=== PATIENT | male | born 1955 | race Caucasian/White ===

== ENCOUNTER → 2020-04-01 11:47 | Outpatient (CLI) | payer BC, SELFPAY | PROVIDERS: PCP Internal Medicine Adolescent Medicine; Visit Provider Internal Medicine Adolescent Medicine | DX: Z03.818 Encounter for observation for suspected exposure to other biological agents ruled out (principal); R50.9 Fever, unspecified | CPT/HCPCS: U0003 ==

== ENCOUNTER → 2020-08-28 09:42 | Outpatient (CLI) | payer BC, SELFPAY ==
[2020-08-28 10:25] LABS: Basophils # 0.1 K/mm3 (0-0.2); Basophils % 1.3 % (0.1-2.0); Eosinophils # 0.1 K/mm3 (0.0-0.4); Eosinophils % 2.7 % (0.1-12.0); Hematocrit 45.2 % (42.0-52.0); Hemoglobin 14.6 g/dL (14.1-18.0); Lymphocytes # 1.5 K/mm3 (0.7-4.5); Mean Corpuscular HGB Conc 32.3 g/dL (31.8-35.4); Mean Corpuscular Hemoglobin 29.9 pg (27.0-31.2); Mean Corpuscular Volume 92.8 fl (80-94); Mean Platelet Volume 7.7 fl (7.4-10.4); Monocytes # 0.4 K/mm3 (0.1-1.0); Monocytes % 8.1 % (1.7-9.3); Neutrophils # 2.9 K/mm3 (1.8-7.8); Neutrophils % 57.9 % (37.0-80.0); Platelet Count 232 K/mm3 (142-424); Red Blood Count 4.88 M/mm3 (4.60-6.20); Red Cell Distribution Width 13.7 % (11.5-17.5)
[2020-08-28 10:58] LABS: Alanine Aminotransferase 43 U/L (12-78); Albumin Level 4.4 g/dl (3.5-5.0); Albumin/Globulin Ratio 1.8 (1.1-1.8); Alkaline Phosphatase 61 U/L (38-126); Anion Gap 10.5 mEq/L (5-15); Aspartate Amino Transferase 39 U/L (17-59); Bilirubin,Total 1.1 mg/dl (0.2-1.3); Blood Urea Nitrogen 21 mg/dl (9-20); Calcium 10.1 mg/dl (8.4-10.2); Carbon Dioxide 31 mmol/L (22.0-30.0); Chloride 101 mmol/L (98-107); Chol/HDL Ratio 4.8 (1-3.5); Cholesterol 189 mg/dl (140-200); Estimated Glomerular Filt Rate 61 ml/min (>60); GFR (African American) 74 ML/MIN (>60); Globulin 2.5 g/dL (1.3-3.2); Glucose 121 mg/dl (74-100); HDL Cholesterol 39 mg/dl (40-60); Potassium 4.5 mmoL/L (3.5-5.1); Sodium 138 mmol/L (136-145); Total Protein,Serum 6.9 g/dl (6.3-8.2); Triglycerides 145 mg/dl (30-150); VLDL Cholesterol 29 mg/dL (0-40)
[2020-08-28 11:09] LABS: Direct LDL Cholesterol 100.12 mg/dL (100-129)
== END ==
PROVIDERS: Visit Provider Internal Medicine Adolescent Medicine
DX: Z00.00 Encounter for general adult medical examination without abnormal findings (principal); Z12.5 Encounter for screening for malignant neoplasm of prostate; E78.5 Hyperlipidemia, unspecified
CPT/HCPCS: 36415; 80053; 80061; 85025; G0103

== ENCOUNTER → 2021-09-15 08:20 | Outpatient (CLI) | payer BC, SELFPAY ==
[2021-09-15 08:44] LABS: Basophils # 0.1 K/mm3 (0-0.2); Basophils % 1.8 % (0.1-2.0); Eosinophils # 0.1 K/mm3 (0.0-0.4); Eosinophils % 2.6 % (0.1-12.0); Hematocrit 45.1 % (42.0-52.0); Hemoglobin 14.8 g/dL (14.1-18.0); Lymphocytes # 1.8 K/mm3 (0.7-4.5); Lymphocytes % 34.5 % (10-50); Mean Corpuscular HGB Conc 32.7 g/dL (31.8-35.4); Mean Corpuscular Hemoglobin 31.4 pg (27.0-31.2); Mean Corpuscular Volume 96.1 fl (80-94); Monocytes # 0.4 K/mm3 (0.1-1.0); Monocytes % 8.6 % (1.7-9.3); Neutrophils # 2.7 K/mm3 (1.8-7.8); Neutrophils % 52.5 % (37.0-80.0); Platelet Count 252 K/mm3 (142-424); Red Cell Distribution Width 13.9 % (11.5-17.5); White Blood Count 5.1 K/mm3 (4.8-10.8)
[2021-09-15 10:30] LABS: Alanine Aminotransferase 39 U/L (12-78); Albumin Level 4.4 g/dl (3.5-5.0); Albumin/Globulin Ratio 2.1 (1.1-1.8); Alkaline Phosphatase 51 U/L (38-126); Anion Gap 12.5 mEq/L (5-15); Aspartate Amino Transferase 40 U/L (17-59); Bilirubin,Total 0.6 mg/dl (0.2-1.3); Blood Urea Nitrogen 22 mg/dl (9-20); Calcium 9.9 mg/dl (8.4-10.2); Carbon Dioxide 28 mmol/L (22.0-30.0); Chloride 103 mmol/L (98-107); Chol/HDL Ratio 4.2 (1-3.5); Cholesterol 143 mg/dl (140-200); Estimated Glomerular Filt Rate 68 ml/min (>60); GFR (African American) 82 ML/MIN (>60); Globulin 2.1 g/dL (1.3-3.2); Glucose 116 mg/dl (74-100); HDL Cholesterol 34 mg/dl (40-60); Potassium 4.5 mmoL/L (3.5-5.1); Sodium 139 mmol/L (136-145); Total Protein,Serum 6.5 g/dl (6.3-8.2); Triglycerides 109 mg/dl (30-150); VLDL Cholesterol 22 mg/dL (0-40)
[2021-09-15 10:40] LABS: Direct LDL Cholesterol 82.04 mg/dL (100-129)
== END ==
PROVIDERS: PCP Internal Medicine Adolescent Medicine; Visit Provider Internal Medicine Adolescent Medicine
DX: I10 Essential (primary) hypertension (principal); E78.5 Hyperlipidemia, unspecified
CPT/HCPCS: 36415; 80053; 80061; 85025

== ENCOUNTER 2023-08-26 09:53 | Outpatient (CLI) | payer BC, SELFPAY ==
[2023-08-26 11:08] LABS: Chloride 99 mmol/L (98-107); Sodium 137 mmol/L (136-145)
[2023-08-26 11:09] LABS: Potassium 4.1 mmoL/L (3.5-5.1)
[2023-08-26 11:11] LABS: Alanine Aminotransferase 35 U/L (12-78); Albumin Level 4.2 g/dl (3.5-5.0); Alkaline Phosphatase 104 U/L (38-126); Anion Gap 11.1 mEq/L (5-15); Aspartate Amino Transferase 35 U/L (17-59); Bilirubin,Total 0.7 mg/dl (0.2-1.3); Blood Urea Nitrogen 22 mg/dl (9-20); Calcium 9.1 mg/dl (8.4-10.2); Carbon Dioxide 31 mmol/L (22.0-30.0); Chol/HDL Ratio 4.5 (1-3.5); Cholesterol 127 mg/dl (140-200); Estimated Glomerular Filt Rate 67 ml/min (>60); GFR (African American) 81 ML/MIN (>60); Globulin 2.1 g/dL (1.3-3.2); Glucose 111 mg/dl (74-100); HDL Cholesterol 28 mg/dl (40-60); Total Protein,Serum 6.3 g/dl (6.3-8.2); Triglycerides 171 mg/dl (30-150); VLDL Cholesterol 34 mg/dL (0-40)
[2023-08-26 11:22] LABS: Direct LDL Cholesterol 67.53 mg/dL (100-129)
== END 2023-08-26 23:59 ==
LOC: LAB 09:55
PROVIDERS: PCP Internal Medicine Adolescent Medicine; Visit Provider Internal Medicine Adolescent Medicine
DX: E78.49 Other hyperlipidemia (principal)
CPT/HCPCS: 36415; 80053; 80061

== ENCOUNTER 2023-09-29 16:00 | Outpatient (RCR) | payer BC, SELFPAY | END 2023-09-29 17:00 | disposition home or self-care (01) | LOC: PT 16:00 | PROVIDERS: PCP Internal Medicine Adolescent Medicine; Visit Provider Physician Assistant | DX: M25.561 Pain in right knee (principal); Z96.651 Presence of right artificial knee joint | CPT/HCPCS: 97010; 97014; 97016; 97110; 97140; 97163; 97164; 97530; G0283 ==

== ENCOUNTER 2024-09-12 08:35 | Outpatient (CLI) | payer MEDICARE, BC, SELFPAY ==
[2024-09-12 08:40] LABS: Adenovirus F 40/41, stool Not Detected (NotDetected); Astrovirus Not Detected (NotDetected); Campylobacter Not Detected (NotDetected); Clostridium Difficile A/B, PCR Not Detected (NotDetected); Cryptosporidium Not Detected (NotDetected); Cyclospora Cayetanesis Not Detected (NotDetected); Entamoeba histolytica Not Detected (NotDetected); Enteroaggregative E coli Not Detected (NotDetected); Enteropathogenic E coli Not Detected (NotDetected); Enterotoxigenic E coli Not Detected (NotDetected); Giardia lamblia Not Detected (NotDetected); Norovirus Not Detected (NotDetected); Plesimonas Shigalloides, PCR Not Detected (NotDetected); Rotavirus A Not Detected (NotDetected); Salmonella, PCR Not Detected (NotDetected); Sapovirus Not Detected (NotDetected); Shiga-like toxin E coli Not Detected (NotDetected); Shigella Enterovasive E coli Not Detected (NotDetected); Vibrio Cholerae Not Detected (NotDetected); Vibrio, PCR Not Detected (NotDetected); Yersinia Entercolitica, PCR Not Detected (NotDetected)
== END 2024-09-12 23:59 | disposition home or self-care (01) ==
LOC: LAB 08:36
PROVIDERS: PCP Internal Medicine Adolescent Medicine; Visit Provider Nurse Practitioner Family
DX: R19.7 Diarrhea, unspecified (principal)
CPT/HCPCS: 87506

== ENCOUNTER 2024-11-22 06:23 | Day surgery (SDC) | payer MEDICARE, BC, SELFPAY ==
[2024-11-19 16:36] VITALS: BMI 30.5
[2024-11-22] VITALS (7 sets, daily range): BP systolic 124–153; BP diastolic 80–95; PULSE 51–54; RESP 16–18; TEMP 36.3–36.4; O2SAT 94–100
[2024-11-22] MEDS: LACTATED RINGERS 1000ML 1,000 ML 50 ML IV (07:27)
--- NOTE | 2024-11-22 07:27 | P.PNANES_ITS ---
[facility] Disclaimer: The information contained in this section may have been updated after the patient was seen, as this information can be updated by other users. Medical History Asthma Allergies Hypertension Colonoscopy planned Surgical History Knee joint replacement status Family History Other Cancer Social History Smoking Status: Never smoker alcohol intake: never substance use type: denies use current occupational status: retired Travel in the last 8 weeks: None caffeine: Yes [facility] Anesthesia Checklist Patient Identification Patient Identification: Arm Band and Verbal (Name & ) Structural Data Admitted From: Home Planned Operative Procedure/s: colonscopy Consent for Planned Operative Procedure(s) Verified: Yes Verified Documents: Surgical Consent and History and Physical NPO Status Verified Time NPO: 00:00 Additional verifications Anesthesia Reactions: No Airway Assessment Mallampati Score:: Class I Neurological Assessment Level of Consciousness: Awake, Alert and Appropriate Anesthesia Plan Anesthesia Risk discussed: Yes Anesthesia Plan: Verified ASA Class: II Anesthesia Type: MAC
--- NOTE | 2024-11-22 07:51 | P.HP_ITS ---
History of Present Illness *Admission Date: 11/22/24 *Reason for visit:: Change in bowel habits *History of present illness: Mr. Roebrtson is a 68-year-old gentleman who is here for diagnostic colonoscopy secondary to a change in bowel habits. He has developed diarrhea and urgency. He also has noted blood in his stool intermittently which is always bright red. Celiac testing was negative. His last colonoscopy was 15 years ago. The examination is deemed medically necessary for [default value]. The patient has been seen, interviewed and examined prior to the procedure by both myself and the anesthesia provider. [facility] Disclaimer: The information contained in this section may have been updated after the patient was seen, as this information can be updated by other users. Medical History Asthma Allergies Hypertension Colonoscopy planned Surgical History Knee joint replacement status Family History Other Cancer Social History (Updated 11/22/24 @ 07:28 by Huyen Garland CRNA) Smoking Status: Never smoker alcohol intake: never substance use type: denies use current occupational status: retired Travel in the last 8 weeks: None caffeine: Yes Have you lived/traveled outside [place] in past 30 days?: No Contact w/someone who lives/traveled outside [place] past 30 days?: No Exposure to someone with infectious disease in past 14 days?: No Do you have a fever (greater than 100.4 F or 38 C)?: No Have you tested positive for COVID-19: No Exposed to someone with COVID-19 in past 14 days?: No Do you have a sore throat?: No Do you have a cough?: No Do you have any weakness?: No Are you experiencing any nausea/vomitting?: No Do you have any diarrhea?: No Are you experiencing any unusual bleeding?: No Do you have any muscle aches/pain?: No Do you have any abdominal pain?: No Are you experiencing loss of taste or smell?: No Other Medical History Have you received the Pneumonia Vaccine: Yes Review of Systems Review of Systems Review of systems (narrative): Negative *Cardiovascular Comments: Negative *Gastrointestinal Comments: Negative *Genitourinary Comments: Negative *Musculoskeletal Comments: Negative *Neurologic Comments: Negative Meds Home Medications and Allergies Home Medications ?Medication ?Instructions ?Recorded ?Confirmed ?Type levocetirizine 5 mg tablet (Xyzal) 5 mg PO DAILY 11/19/18 11/22/24 History montelukast 10 mg tablet 10 mg PO QPM 11/19/18 11/22/24 History (Singulair) carvedilol 12.5 mg tablet 12.5 mg PO BID 09/11/24 11/22/24 History fluticasone fur. 100 mcg-umeclid 1 inh inhalation DAILY 09/11/24 11/22/24 History 62.5 mcg-vilant 25 mcg inhalat.powder (Trelegy Ellipta) hydrochlorothiazide 25 mg tablet 25 mg PO DAILY 09/11/24 11/22/24 History losartan 50 mg tablet 50 mg PO DAILY 09/11/24 11/22/24 History rizatriptan 10 mg tablet 10 mg PO NEEDED PRN migrane 09/11/24 11/22/24 History sodium,potassium,mag sulfates 17.5 See Rx Instructions PO .COMPLEX 11/07/24 11/22/24 Rx gram-3.13 gram-1.6 gram oral soln #354 mL (Suprep Bowel Prep Kit) New Prescriptions to Start Prescriptions: Allergies Allergy/AdvReac Type Severity Reaction Status Date / Time tetracycline Allergy Mild Hives Verified 11/22/24 07:12 Exam Data for Last 24 hours Vital signs and Labs for Last 24 Hours: Temp Pulse Resp BP Pulse Ox O2 Del Method 97.4 F L 54 L 18 153/95 H 97 Room Air 11/22/24 07:14 11/22/24 07:14 11/22/24 07:14 11/22/24 07:14 11/22/24 07:14 11/22/24 07:14 I & O for Last 24 hours: Intake & Output 11/19/24 11/20/24 11/21/24 11/22/24 23:59 23:59 23:59 23:59 Weight 225 lb *Routine HEENT Exam Head: Present normocephalic Eye: Present EOMI and PERRL ENT: Present mucous membranes moist *Routine Neck Exam Neck: Present supple *Routine Respiratory Exam Respiratory: Present CTA bilaterally *Routine Cardiovascular Exam Cardiovascular: Present RRR *Routine Abdominal Exam Abdominal: Present soft and normoactive bowel sounds; Absent tenderness *Routine Rectal Exam Rectal:: deferred *Routine Genitalia Exam Genitalia:: deferred *Routine Extremities Exam Extremities: Absent cyanosis, clubbing or edema *Routine Skin Exam Skin: Present warm; Absent rash *Routine Neurological Exam Neurological: Present alert and oriented X3 Assessment and Plan *Assessment and plan (1) Diarrhea: Status: Acute Category: Medical Code(s): R19.7 - Diarrhea, unspecified (2) Change in bowel habits: Status: Acute Category: Medical Code(s): R19.4 - Change in bowel habit (3) Blood in stool: Status: Acute Category: Medical Code(s): K92.1 - Melena (4) Bloating: Status: Acute Category: Medical Code(s): R14.0 - Abdominal distension (gaseous) (5) Fecal urgency: Status: Acute Category: Medical Code(s): R15.2 - Fecal urgency Plan A/P: 1. Change in bowel habits with diarrhea and blood in stool is the preprocedural diagnosis. The patient will be anesthetized/sedated using MAC sedation. The patient has been seen and examined. Cardiac and lung assessment prior to the examination is stable. Proceed with planned diagnostic colonoscopy
--- NOTE | 2024-11-22 07:53 | HMH.PROCNOTE ---
[facility] Procedure Note Date: 11/22/24 Time: 08:16 Procedure Note:: Colonoscopy Procedure Report: Colonoscopy with cold biopsies, cold snare polypectomy and hemorrhoid band ligation Endoscopist: Jeanmarie Hanson II, MD Referring physician: Pablo Villalpando M.D. Date of Procedure: November 22, 2024 Equipment: Olympus 190 variable stiffness pediatric colonoscope Sedation: MAC sedation Indication: Mr. Robertson is a 68-year-old gentleman who is here for diagnostic colonoscopy. The patient has had a change in bowel habits and about 6 months ago he developed diarrhea. This is primarily soft and loose stools with some urgency and frequency. He has had moderate gassiness and bloating. He reports no abdominal pain. He has noted bright red blood per rectum which occurs primarily after a bowel movement and can drip into the toilet bowl. He does not have any prolapsing internal hemorrhoids but has had hemorrhoids in the past. He reports no abdominal pain, weight loss or family history of colon cancer. He reports no family history of colitis or Crohn's disease. His last colonoscopy was about 15 years ago. He did have a negative Cologuard 2 years ago. The patient reports some excessive wiping/incomplete defecation. Procedure: Prior to the procedure, a history and physical exam was performed, and patient's medications and allergies were reviewed. The risks, benefits and alternatives of the sedation and procedure were discussed with the patient. All questions were answered and informed consent was obtained. The patient was brought to the procedure room. Patient identification and proposed procedure were verified by the physician and the nurse. The patient was placed in a left lateral decubitus position and the scope was passed under direct vision. Throughout the procedure, the patient's blood pressure, pulse, and oxygen saturations were monitored continuously. The colonoscopy was accomplished without difficulty. The patient tolerated the procedure well. Findings: On digital rectal examination there was normal rectal tone. There were no external hemorrhoids. The prostate was 2+, smooth, soft, symmetric without nodules. The colonoscope was introduced through the anal canal to the rectum and advanced to the cecum. The ileocecal valve and appendiceal orifice were identified. The scope was advanced a short distance into the ileum which appeared grossly normal. The scope was then withdrawn into the colon. There were 3 colon polyps (ascending x 1 (8 mm), transverse x 1 (9 mm) and descending x 1 (3 to 4 mm)). These were all removed via cold snare polypectomy. Random biopsies were taken from the right colon to rule out microscopic colitis. The remaining cecum, ascending and transverse colon and mucosa were grossly normal. There were scattered diverticuli throughout the descending and sigmoid colon (LEFT colon). The rectum itself was normal. Upon retroflexion within the rectum there were grade 2-3 internal hemorrhoids. 3 columns of hemorrhoids were banded using 3 bands with excellent ligation effect. The preparation was excellent throughout with [place] Preparation Score of 9. The cecal time was 12 minutes. Impression: 1. Colonic polyps x 3 (3, 8 and 9 mm) 2. Left-sided diverticulosis 3. Grade 2-3 internal hemorrhoids status post band ligation x 3 Plan: I will follow-up the polyp histology and recommend repeat surveillance colonoscopy again in 3 to 5 years. I will follow-up the biopsies to rule out microscopic colitis. The patient should improve with psyllium bulking fiber supplementation. If the biopsies are normal, I would consider adding Viberzi.
== END 2024-11-22 09:18 | disposition home or self-care (01) ==
PROVIDERS: PCP Internal Medicine Adolescent Medicine; Visit Provider Internal Medicine Gastroenterology
PROC: 0DJD8ZZ Inspection of Lower Intestinal Tract, Via Natural or Artificial Opening Endoscopic (ICD-10-PCS; CPT 45378; principal; 2024-11-22 08:00)
DX: K63.5 Polyp of colon (principal); K57.30 Diverticulosis of large intestine without perforation or abscess without bleeding; K64.9 Unspecified hemorrhoids; R19.7 Diarrhea, unspecified; R19.4 Change in bowel habit; K92.1 Melena; R14.0 Abdominal distension (gaseous); R15.2 Fecal urgency
CPT/HCPCS: 45380; 45385; 45398; 88305; C1889; J7120